=== PATIENT | male | born 1965 | race Asian ===

== ENCOUNTER 2020-10-06 12:38 | Emergency (ER) | payer MEDICAID ==
[~2020-10-06] VITALS: Ht 162.6 cm; Wt 74.8 kg
[2020-10-06] MEDS ORDERED: MECLIZINE HCL 25 MG TABLET ONE (12:59)
[2020-10-06] MEDS ORDERED: MECLIZINE HCL 12.5 MG TABLET PO ONE (13:00)
[2020-10-06] MEDS ORDERED: IV NS 0.9% 1,000 ML BAG IV ONE (13:00)
[2020-10-06] MEDS ORDERED: CLOP75TA15 PO (13:09)
[2020-10-06] MEDS ORDERED: EMPA25TA PO (13:09)
[2020-10-06] MEDS ORDERED: LISI10TA5 PO (13:09)
[2020-10-06] MEDS ORDERED: GLIM4TAB37 PO (13:09)
[2020-10-06] MEDS ORDERED: SIMV-46 PO (13:09)
[2020-10-06] MEDS ORDERED: METF-442 PO (13:09)
[2020-10-06 13:20] LABS: BASOPHILS # (AUTO) 0.1 /CMM (0.0-0.2); BASOPHILS % (AUTO) 0.7 % (0.0-2.0); EOSINOPHILS % (AUTO) 2.1 % (0.0-6.0); HEMATOCRIT 50 % (39-51); HEMOGLOBIN 16.5 g/dL (13.5-17.5); LYMPHOCYTES % (AUTO) 30.4 % (20.0-44.0); MEAN CORPUSCULAR HGB CONC 33 g/dl (31.0-36.0); MEAN CORPUSCULAR VOLUME 91 fL (80-96); MONOCYTES # (AUTO) 0.6 /CMM (0.1-1.30); MONOCYTES % (AUTO) 6.3 % (2.0-12.0); NEUTROPHILS # (AUTO) 5.9 /CMM (1.8-8.9); NEUTROPHILS % (AUTO) 60.5 % (43.0-81.0); PLATELET COUNT (AUTO) 280 /CMM (150-450); RED BLOOD CELL COUNT(AUTO) 5.48 MIL/uL (4.5-6.0); WHITE BLOOD COUNT (AUTO) 9.7 K/uL (4.3-11.0)
--- NOTE | 2020-10-06 13:24 | NUR ---
BIBS FROM HOME TO ER BED 6. AAOX4. NOT IN RESP DISTRESS. AMBULATORY.CAME IN FOR DIZZYNESS X 4 DAYS AND WAS SENT BY THE URGENT CARE ALSO FOR AN ABNORMAL EKG. PT IS PLACED ON MONITOR. EKG DONE. DENIES CP. WAS AT THE BEDSIDE FOR EVAL. ORDERS RECEIVED, NOTED AND CARRIED OUT
[2020-10-06 13:28] LABS: CALCIUM, SERUM 8.7 mg/dL (8.5-10.1); CREATININE 0.9 mg/dL (0.6-1.3); POTASSIUM 4.4 mmol/L (3.5-5.1)
--- NOTE | 2020-10-06 14:37 | NUR ---
Patient discharged to home in stable condition. Written and verbal after care instructions given. Patient verbalizes understanding of instruction.IV removed. Catheter intact and site benign. Pressure and 4x4 applied to site. No bleeding noted. Pt ambulatory with a steady gait
[2020-10-06 14:39] VITALS: BP 149/75
== END 2020-10-06 14:40 | disposition home or self-care (01) ==
LOC: ER 12:44
DX: R42 Dizziness and giddiness (principal); I10 Essential (primary) hypertension; E11.9 Type 2 diabetes mellitus without complications; Z79.899 Other long term (current) drug therapy; Z79.84 Long term (current) use of oral hypoglycemic drugs
CPT/HCPCS: 36415; 70450; 80048; 82962; 84484; 85025; 93005; 96360; 99285; J7030; J8597